=== PATIENT | female | born 1975 | race African-American/Black ===

== ENCOUNTER 2017-02-16 00:55 | Emergency (ER) | payer MEDICAID, OTHER ==
[~2017-02-16] VITALS: Ht 160 cm; Wt 61.0 kg
[~2017-02-16 00:55] MED LIST: ALBUTEROL
[2017-02-16] MEDS ORDERED: ONDANSETRON HCL 4MG/2ML VIAL IV STA (02:19)
[2017-02-16] MEDS ORDERED: MORPHINE SULFATE 4 MG/ML CPJ (NOT FOR IM USE) IV STA (02:19)
[2017-02-16] MEDS ORDERED: SODIUM CHLORIDE 0.9% 1,000 ML IV ONE (02:19)
[2017-02-16] MEDS ORDERED: MORPHINE SULFATE 10 MG/ML CPJ IV STA (02:30)
[2017-02-16] MEDS ORDERED: ONDANSETRON HCL 4MG/2ML VIAL IV ONE (02:45)
[2017-02-16] MEDS ORDERED: MORPHINE SULFATE 10 MG/ML CPJ IV SCH (02:45)
[2017-02-16 02:47] LABS: BASOPHILS % 1.1 % (0.0-2.0); EOSINOPHILS % 1.2 % (0.0-5.0); HEMATOCRIT. 37.4 % (36.0-48.0); HEMOGLOBIN. 12.1 g/dL (12.0-16.0); MEAN CORPUSCULAR HEMOGLOBIN 28.8 pg (28.0-32.0); MEAN CORPUSCULAR VOLUME 89.3 fL (81.0-99.0); MEAN PLATELET VOLUME 9.8 fl (7.4-10.4); MONOCYTES % 3.4 % (2.0-8.0); NEUTROPHILS % 44.3 % (40.0-76.0); PLATELET 144 x1000/uL (130-400); RED BLOOD CELL COUNT 4.18 mill/uL (4.2-5.4); RED CELL DISTRIBUTION WIDTH 13.4 % (11.6-14.6)
[2017-02-16 02:57] LABS: PROTHROMBIN TIME 10.3 sec (9.4-11.6)
[2017-02-16 03:20] LABS: CARBON DIOXIDE 27 mEq/L (21-32); CHLORIDE 105 mEq/L (98-107)
[2017-02-16 03:32] LABS: ETHANOL BLOOD 319 mg/dL
[2017-02-16 07:35] VITALS: BP 113/87
== END 2017-02-16 08:12 | disposition home or self-care (01) ==
LOC: ER 00:55
DX: J45.909 Unspecified asthma, uncomplicated (principal); R10.9 Unspecified abdominal pain; R04.0 Epistaxis; I10 Essential (primary) hypertension; M19.90 Unspecified osteoarthritis, unspecified site
CPT/HCPCS: 36415; 71010; 80053; 83605; 83690; 85025; 85610; 87040; 96361; 96374; 96375; 99285; G0482; J2270; J2405; Z7610; J7030

== ENCOUNTER 2017-07-12 10:17 | Inpatient (IN) | payer MEDICAID ==
[~2017-07-12] VITALS: Ht 160 cm; Wt 63.5 kg
[2017-07-12] MEDS ORDERED: ONDANSETRON HCL 4MG/2ML VIAL IV STA (11:08)
[2017-07-12] MEDS ORDERED: SODIUM CHLORIDE 0.9% 1,000 ML IV ONE (11:08)
[2017-07-12] MEDS ORDERED: METHYLPREDNISOLONE SOD SUCC 125 MG/2 ML VIAL IV ONE (11:15)
[2017-07-12] MEDS ORDERED: KETOROLAC 30MG/ML VIAL IV ONE (11:15)
[2017-07-12] MEDS ORDERED: IPRATROPIUM/ALBUTEROL 0.5-3(2.5)MG/3ML NEB HHN ONE (11:15)
[2017-07-12 11:36] LABS: HEMATOCRIT. 40.9 % (36.0-48.0); HEMOGLOBIN. 13.5 g/dL (12.0-16.0); MEAN CORPUSCULAR HEMOGLOBIN 29.4 pg (28.0-32.0); MEAN PLATELET VOLUME 10.7 fl (7.4-10.4); PLATELET 63 x1000/uL (130-400); RED BLOOD CELL COUNT 4.59 mill/uL (4.2-5.4); RED CELL DISTRIBUTION WIDTH 16.9 % (11.6-14.6)
[2017-07-12 11:43] LABS: CHLORIDE 92 mEq/L (98-107)
[2017-07-12 11:53] LABS: PARTIAL THROMBOPLASTIN TIME 38.1 sec (23.4-31.0); PROTHROMBIN TIME 10.5 sec (9.4-11.6)
[2017-07-12 12:02] LABS: PLATELET ESTIMATE DECREASED
[2017-07-12] MEDS ORDERED: POTASSIUM CHLORIDE 20MEQ TABLET SR PO ONE (12:30)
[2017-07-12] MEDS ORDERED: KCL 10MEQ/50ML PREMIX 50 ML IV ONE (12:30)
[2017-07-12] MEDS ORDERED: CEFTRIAXONE 1 G PREMIX 50 ML IV ONE (13:00)
[2017-07-12] MEDS ORDERED: AZITHROMYCIN 500 MG in DEXT 5% WATER 250 ML IV SCH (13:00)
[2017-07-12 14:57] LABS: ETHANOL BLOOD 50 mg/dL
[2017-07-12 16:30] VITALS: BP 126/89
[2017-07-12] MEDS ORDERED: CLONIDINE 0.1MG TABLET PO PRN (17:15)
[2017-07-12] MEDS ORDERED: MAGNESIUM/ALUMINUM HYDROXIDE/SIMETHICONE 30ML UDC PO PRN (17:15)
[2017-07-12] MEDS ORDERED: ZOLPIDEM TARTRATE 5MG TABLET PO PRN (17:15)
[2017-07-12] MEDS ORDERED: SODIUM CHLORIDE 0.9% 1,000 ML IV SCH (17:30)
[2017-07-12] MEDS ORDERED: POTASSIUM CHLORIDE INJ 40 MEQ in DEXT 5% WATER 500 ML IV ONE (19:00)
[2017-07-12 20:00] VITALS: BP 124/90
[2017-07-12] MEDS: LEVOFLOXACIN 500MG PREMIX 100 ML IV SCH (20:00)
[2017-07-12] MEDS ORDERED: MAGNESIUM 2 G PREMIX 50 ML IV NR (21:00)
[2017-07-12] MEDS: IPRATROPIUM/ALBUTEROL 0.5-3(2.5)MG/3ML NEB HHN SCH (21:15)
[2017-07-12] MEDS: ACETAMINOPHEN 325MG TABLET PO PRN (22:59)
[2017-07-13] VITALS: BP 131/83
[2017-07-13] MEDS: IPRATROPIUM/ALBUTEROL 0.5-3(2.5)MG/3ML NEB HHN SCH ×6 (01:11→21:04)
[2017-07-13 04:00] VITALS: BP 126/84
[2017-07-13 06:17] LABS: BASOPHILS % 0.1 % (0.0-2.0); EOSINOPHILS % 0.6 % (0.0-5.0); HEMATOCRIT. 35.5 % (36.0-48.0); HEMOGLOBIN. 11.8 g/dL (12.0-16.0); LYMPHOCYTES % 7.2 % (20.0-50.0); MEAN CORPUSCULAR HEMOGLOBIN 29.4 pg (28.0-32.0); MEAN CORPUSCULAR VOLUME 88.9 fL (81.0-99.0); MEAN PLATELET VOLUME 11.7 fl (7.4-10.4); NEUTROPHILS % 84.1 % (40.0-76.0); PLATELET 53 x1000/uL (130-400); RED BLOOD CELL COUNT 3.99 mill/uL (4.2-5.4)
[2017-07-13] MEDS: PIPERACILLIN/TAZ 3.375G PREMIX 50 ML IV SCH ×2 (06:30)
[2017-07-13] MEDS: LEVOFLOXACIN 500MG PREMIX 100 ML IV SCH (06:58)
[2017-07-13 07:14] LABS: CHLORIDE 96 mEq/L (98-107)
[2017-07-13 07:29] LABS: PHOSPHORUS 1.8 mg/dL (2.5-4.9)
[2017-07-13 07:56] VITALS: BP 112/78
[2017-07-13] MEDS: PANTOPRAZOLE SODIUM 40 MG/VIAL IV SCH (08:38)
[2017-07-13] MEDS ORDERED: MAGNESIUM 1 G PREMIX 100 ML IV NR (10:30)
[2017-07-13] MEDS ORDERED: GENTAMICIN SULFATE 120 MG in SODIUM CHLORIDE 0.9% 100 ML IV SCH (11:00)
[2017-07-13] MEDS ORDERED: POTASSIUM PHOS,M-BASIC-D-BASIC 20 MMOL in DEXT 5% WATER 243.3333 ML IV NR (11:00)
[2017-07-13 12:08] VITALS: BP 110/61
[2017-07-13] MEDS ORDERED: NICOTINE 21MG PATCH TD NR (15:30)
[2017-07-13] MEDS: ACETAMINOPHEN 325MG TABLET PO PRN (15:45)
[2017-07-13] MEDS: KETOROLAC 30MG/ML VIAL IV PRN (16:04)
[2017-07-13] MEDS: BUDESONIDE 0.5MG/2ML NEB HHN SCH (16:19)
[2017-07-13 16:26] VITALS: BP 115/77
[2017-07-13 17:09] LABS: CLARITY URINE CLEAR (CLEAR); COLOR URINE YELLOW (YELLOW); KETONES URINE NEGATIVE (NEGATIVE); LEUKOCYTE ESTERASE URINE NEGATIVE (NEGATIVE); NITRITE URINE NEGATIVE (NEGATIVE); OCCULT BLOOD URINE 1+ (NEGATIVE); PROTEIN URINE 1+ (NEGATIVE); SPECIFIC GRAVITY URINE 1.013 (1.005-1.030); UROBILINOGEN URINE 0.2 E.U./dL (0.2-1.0)
[2017-07-13 17:21] LABS: *AMPHETAMINES SCREEN URINE NEGATIVE (NEGATIVE); *BARBITURATES SCREEN URINE NEGATIVE (NEGATIVE); *BENZODIAZEPINES SCREEN URINE NEGATIVE (NEGATIVE); *COCAINE SCREEN URINE NEGATIVE (NEGATIVE)
[2017-07-13 17:22] LABS: METHADONE URINE SCREEN NEGATIVE (NEGATIVE); OPIATES URINE SCREEN NEGATIVE (NEGATIVE); PHENCYCLIDINE URINE SCREEN NEGATIVE (NEGATIVE)
[2017-07-13 17:25] LABS: CANNABINOID URINE SCREEN NEGATIVE (NEGATIVE)
[2017-07-13] MEDS: SODIUM CHL 0.9% + KCL 20MEQ/L 1,000 ML IV SCH (17:48)
[2017-07-13 20:00] VITALS: BP 98/67
[2017-07-13] MEDS: GUAIFENESIN 600MG ER TABLET PO SCH (20:47)
[2017-07-13] MEDS ORDERED: GENTAMICIN 100MG PREMIX 50 ML IV SCH (21:00)
[2017-07-13] MEDS: GENTAMICIN SULFATE 120 MG in SODIUM CHLORIDE 0.9% 100 ML IV SCH (21:21)
[2017-07-14] VITALS: BP 126/85
[2017-07-14] MEDS: ONDANSETRON HCL 4MG/2ML VIAL IV PRN (00:52)
[2017-07-14] MEDS: KETOROLAC 30MG/ML VIAL IV PRN ×3 (00:52→14:45)
[2017-07-14 04:00] VITALS: BP 106/70
[2017-07-14] MEDS: BUDESONIDE 0.5MG/2ML NEB HHN SCH ×3 (04:50→20:30)
[2017-07-14] MEDS: IPRATROPIUM/ALBUTEROL 0.5-3(2.5)MG/3ML NEB HHN SCH ×6 (04:50→20:30)
[2017-07-14 05:43] LABS: HEMATOCRIT. 32.7 % (36.0-48.0); HEMOGLOBIN. 10.8 g/dL (12.0-16.0); MEAN CORPUSCULAR HEMOGLOBIN 29.4 pg (28.0-32.0); MEAN PLATELET VOLUME 11.3 fl (7.4-10.4); PLATELET 63 x1000/uL (130-400); RED BLOOD CELL COUNT 3.68 mill/uL (4.2-5.4); RED CELL DISTRIBUTION WIDTH 17.1 % (11.6-14.6)
[2017-07-14] MEDS: LEVOFLOXACIN 500MG PREMIX 100 ML IV SCH (06:04)
[2017-07-14] MEDS: SODIUM CHL 0.9% + KCL 20MEQ/L 1,000 ML IV SCH ×3 (06:05→23:29)
[2017-07-14 08:00] VITALS: BP 121/68
[2017-07-14 08:05] LABS: CHLORIDE 101 mEq/L (98-107)
[2017-07-14 08:25] LABS: PHOSPHORUS 1.7 mg/dL (2.5-4.9)
[2017-07-14] MEDS: PANTOPRAZOLE SODIUM 40 MG/VIAL IV SCH (08:25)
[2017-07-14] MEDS: ACETAMINOPHEN 325MG TABLET PO PRN (08:25)
[2017-07-14] MEDS: GUAIFENESIN 600MG ER TABLET PO SCH ×2 (08:26→21:07)
[2017-07-14 08:28] LABS: GENTAMICIN TROUGH 1.2 ug/mL (<2.0)
[2017-07-14] MEDS: NICOTINE 21MG PATCH TD SCH (10:33)
[2017-07-14] MEDS: GENTAMICIN SULFATE 120 MG in SODIUM CHLORIDE 0.9% 100 ML IV SCH ×2 (11:38→21:07)
[2017-07-14 12:00] VITALS: BP 103/74
[2017-07-14 14:23] LABS: PLATELET ESTIMATE DECREASED
[2017-07-14] MEDS ORDERED: HYDROCODONE/ACETAMINOPHEN 5/325MG TABLET PO PRN (15:00)
[2017-07-14 16:00] VITALS: BP 113/86
[2017-07-14] MEDS ORDERED: POTASSIUM PHOS,M-BASIC-D-BASIC 30 MMOL in DEXT 5% WATER 500 ML IV NR (17:00)
[2017-07-14] MEDS: MORPHINE SULFATE 4 MG/ML CPJ (NOT FOR IM USE) IV PRN (18:58)
[2017-07-14 20:00] VITALS: BP 112/84
[2017-07-14] MEDS: HYDROCODONE/ACETAMINOPHEN 10/325MG TABLET PO PRN (21:13)
[2017-07-15] VITALS: BP 122/68
[2017-07-15] MEDS: ACETYLCYSTEINE 100MG/ML 10% VIAL 4ML INH SCH ×4 (00:40→16:29)
[2017-07-15 04:00] VITALS: BP 116/79
[2017-07-15] MEDS: IPRATROPIUM/ALBUTEROL 0.5-3(2.5)MG/3ML NEB HHN SCH ×7 (04:45→20:36)
[2017-07-15] MEDS: SODIUM CHL 0.9% + KCL 20MEQ/L 1,000 ML IV SCH ×3 (06:26→23:21)
[2017-07-15] MEDS: LEVOFLOXACIN 500MG PREMIX 100 ML IV SCH (06:27)
[2017-07-15 06:46] LABS: CHLORIDE 105 mEq/L (98-107)
[2017-07-15 07:08] LABS: HEMATOCRIT. 34.2 % (36.0-48.0); HEMOGLOBIN. 11.4 g/dL (12.0-16.0); MEAN CORPUSCULAR HEMOGLOBIN 29.1 pg (28.0-32.0); MEAN CORPUSCULAR VOLUME 87.7 fL (81.0-99.0); MEAN PLATELET VOLUME 10.9 fl (7.4-10.4); PLATELET 114 x1000/uL (130-400); RED CELL DISTRIBUTION WIDTH 17.4 % (11.6-14.6)
[2017-07-15 08:00] VITALS: BP 141/95
[2017-07-15] MEDS ORDERED: LIDOCAINE HCL/PF 1% 10 MG/ML 5ML VIAL ONE (08:08)
[2017-07-15] MEDS ORDERED: SODIUM BICARBONATE 4% (2.4MEQ) 5ML VIAL IV ONE (08:08)
[2017-07-15] MEDS: NICOTINE 21MG PATCH TD SCH (09:00)
[2017-07-15] MEDS: BUDESONIDE 0.5MG/2ML NEB HHN SCH ×2 (09:12→20:37)
[2017-07-15] MEDS: PANTOPRAZOLE SODIUM 40 MG/VIAL IV SCH (09:52)
[2017-07-15] MEDS: GUAIFENESIN 600MG ER TABLET PO SCH ×2 (09:53→23:20)
[2017-07-15] MEDS: MORPHINE SULFATE 4 MG/ML CPJ (NOT FOR IM USE) IV PRN (09:58)
[2017-07-15 12:00] VITALS: BP 138/95
[2017-07-15] MEDS ORDERED: MAGNESIUM 2 G PREMIX 50 ML IV NR (12:00)
[2017-07-15] MEDS ORDERED: POTASSIUM PHOS,M-BASIC-D-BASIC 30 MMOL in DEXT 5% WATER 500 ML IV NR (12:00)
[2017-07-15 16:00] VITALS: BP 116/75
[2017-07-15] MEDS: HYDROCODONE/ACETAMINOPHEN 10/325MG TABLET PO PRN (16:33)
[2017-07-15 19:49] LABS: PLATELET ESTIMATE SLIGHTLY DECREASED
[2017-07-15 20:00] VITALS: BP 132/80
[2017-07-16] VITALS: BP 116/73
[2017-07-16] MEDS: IPRATROPIUM/ALBUTEROL 0.5-3(2.5)MG/3ML NEB HHN SCH ×5 (01:22→21:34)
[2017-07-16] MEDS: ACETYLCYSTEINE 100MG/ML 10% VIAL 4ML INH SCH ×3 (01:23→17:00)
[2017-07-16] MEDS: LEVOFLOXACIN 500MG PREMIX 100 ML IV SCH (06:31)
[2017-07-16] MEDS: SODIUM CHL 0.9% + KCL 20MEQ/L 1,000 ML IV SCH (06:31)
[2017-07-16 07:55] LABS: HEMATOCRIT. 30.6 % (36.0-48.0); HEMOGLOBIN. 10.4 g/dL (12.0-16.0); MEAN CORPUSCULAR HEMOGLOBIN 29.9 pg (28.0-32.0); MEAN CORPUSCULAR VOLUME 87.8 fL (81.0-99.0); MEAN PLATELET VOLUME 10.5 fl (7.4-10.4); PLATELET 185 x1000/uL (130-400); RED BLOOD CELL COUNT 3.49 mill/uL (4.2-5.4); RED CELL DISTRIBUTION WIDTH 17.3 % (11.6-14.6)
[2017-07-16 08:00] VITALS: BP 107/68
[2017-07-16] MEDS: BUDESONIDE 0.5MG/2ML NEB HHN SCH (08:20)
[2017-07-16 08:39] LABS: CHLORIDE 100 mEq/L (98-107)
[2017-07-16 08:46] LABS: PHOSPHORUS 1.2 mg/dL (2.5-4.9)
[2017-07-16] MEDS: PANTOPRAZOLE SODIUM 40 MG/VIAL IV SCH (09:05)
[2017-07-16] MEDS: GUAIFENESIN 600MG ER TABLET PO SCH ×2 (09:05→20:11)
[2017-07-16] MEDS: NICOTINE 21MG PATCH TD SCH (09:05)
[2017-07-16] MEDS: HYDROCODONE/ACETAMINOPHEN 10/325MG TABLET PO PRN ×2 (09:18→18:27)
[2017-07-16] MEDS ORDERED: MAGNESIUM 4 G PREMIX 100 ML IV NR (10:00)
[2017-07-16] MEDS ORDERED: SODIUM BICARBONATE 4% (2.4MEQ) 5ML VIAL IV ONE (10:54)
[2017-07-16] MEDS ORDERED: POTASSIUM PHOS,M-BASIC-D-BASIC 30 MMOL in DEXT 5% WATER 500 ML IV NR (11:00)
[2017-07-16 12:00] VITALS: BP 93/64
[2017-07-16 16:00] VITALS: BP 112/72
[2017-07-16 16:19] LABS: PLATELET ESTIMATE NORMAL
[2017-07-16 18:25] VITALS: BP 123/72
[2017-07-16 20:00] VITALS: BP 102/69
[2017-07-16] MEDS: ACETAMINOPHEN 325MG TABLET PO PRN (20:20)
[2017-07-17] VITALS: BP 98/62
[2017-07-17] MEDS: IPRATROPIUM/ALBUTEROL 0.5-3(2.5)MG/3ML NEB HHN SCH ×6 (01:15→21:10)
[2017-07-17] MEDS: ACETYLCYSTEINE 100MG/ML 10% VIAL 4ML INH SCH ×2 (01:15→21:10)
[2017-07-17] MEDS: HYDROCODONE/ACETAMINOPHEN 10/325MG TABLET PO PRN ×3 (03:49→22:22)
[2017-07-17] MEDS: GUAIFENESIN 200MG/10ML SUGAR FREE UDC PO PRN ×2 (03:58→15:28)
[2017-07-17 04:00] VITALS: BP 119/81
[2017-07-17] MEDS: SODIUM CHL 0.9% + KCL 20MEQ/L 1,000 ML IV SCH ×2 (05:54→07:30)
[2017-07-17] MEDS: LEVOFLOXACIN 500MG PREMIX 100 ML IV SCH (07:40)
[2017-07-17] MEDS: GUAIFENESIN 600MG ER TABLET PO SCH ×2 (08:07→22:10)
[2017-07-17] MEDS: FAMOTIDINE 20MG TABLET PO SCH ×2 (08:07→22:10)
[2017-07-17] MEDS: NICOTINE 21MG PATCH TD SCH (08:08)
[2017-07-17 08:27] VITALS: BP 105/62
[2017-07-17 09:27] LABS: CHLORIDE 99 mEq/L (98-107)
[2017-07-17 09:40] LABS: PHOSPHORUS 3.5 mg/dL (2.5-4.9)
[2017-07-17 12:00] VITALS: BP 118/76
[2017-07-17] MEDS: ACETAMINOPHEN 325MG TABLET PO PRN (12:10)
[2017-07-17 15:38] VITALS: BP 128/91
[2017-07-17] MEDS: BENZONATATE 100MG CAPSULE PO SCH ×2 (16:57→22:10)
[2017-07-17 17:05] LABS: BG CARBOXYHEMOGLOBIN 1.1 % (0.5-1.5); BG FRACTION INSPIRED OXYGEN 21; BG HCO3 ACT 22.8 mmol/L (22.0-26.0); BG METHEMOGLOBIN 0.2 % (0.0-1.5); BG OXYHEMOGLOBIN 92.7 % (94.0-97.0); BG PCO2 31.5 mmHg (35.0-45.0); BG PH 7.478 (7.350-7.450); BG PO2 67.9 mmHg (75.0-100.0); BG SAMPLE SITE RIGHT RADIAL; BG TOTAL HEMOGLOBIN 11.8 g/dL (12.0-18.0); BG VENT MODE ROOM AIR
[2017-07-17 20:00] VITALS: BP 101/69
[2017-07-17] MEDS ORDERED: GUAIFENESIN 600MG ER TABLET PO SCH (21:00)
[2017-07-17] MEDS: BUDESONIDE 0.5MG/2ML NEB HHN SCH (21:10)
[2017-07-18] VITALS: BP 98/56
[2017-07-18 04:00] VITALS: BP 135/76
[2017-07-18] MEDS: GUAIFENESIN 200MG/10ML SUGAR FREE UDC PO PRN ×2 (04:39→21:34)
[2017-07-18] MEDS: BENZONATATE 100MG CAPSULE PO SCH ×3 (05:20→21:34)
[2017-07-18] MEDS: LEVOFLOXACIN 500MG PREMIX 100 ML IV SCH (06:59)
[2017-07-18 08:00] VITALS: BP 117/76
[2017-07-18] MEDS: NICOTINE 21MG PATCH TD SCH (08:08)
[2017-07-18] MEDS: FAMOTIDINE 20MG TABLET PO SCH ×2 (08:09→21:34)
[2017-07-18] MEDS: GUAIFENESIN 600MG ER TABLET PO SCH ×2 (08:09→21:34)
[2017-07-18] MEDS: ACETAMINOPHEN 325MG TABLET PO PRN (08:09)
[2017-07-18] MEDS: IPRATROPIUM/ALBUTEROL 0.5-3(2.5)MG/3ML NEB HHN SCH ×4 (08:45→21:01)
[2017-07-18] MEDS: ACETYLCYSTEINE 100MG/ML 10% VIAL 4ML INH SCH ×2 (08:45→16:53)
[2017-07-18 12:00] VITALS: BP 104/59
[2017-07-18 13:49] LABS: KETONES URINE TRACE (NEGATIVE); LEUKOCYTE ESTERASE URINE TRACE (NEGATIVE); NITRITE URINE NEGATIVE (NEGATIVE); OCCULT BLOOD URINE NEGATIVE (NEGATIVE); PROTEIN URINE TRACE (NEGATIVE); SPECIFIC GRAVITY URINE 1.019 (1.005-1.030)
[2017-07-18 13:51] LABS: CLARITY URINE HAZY (CLEAR); COLOR URINE YELLOW (YELLOW)
[2017-07-18 14:31] LABS: BASOPHILS % 0.4 % (0.0-2.0); EOSINOPHILS % 0.2 % (0.0-5.0); HEMATOCRIT. 27.4 % (36.0-48.0); HEMOGLOBIN. 9.3 g/dL (12.0-16.0); LYMPHOCYTES % 16.1 % (20.0-50.0); MEAN CORPUSCULAR HEMOGLOBIN 29.7 pg (28.0-32.0); MEAN CORPUSCULAR VOLUME 87.9 fL (81.0-99.0); MEAN PLATELET VOLUME 9.7 fl (7.4-10.4); MONOCYTES % 9.3 % (2.0-8.0); PLATELET 297 x1000/uL (130-400); RED BLOOD CELL COUNT 3.12 mill/uL (4.2-5.4); RED CELL DISTRIBUTION WIDTH 16.2 % (11.6-14.6)
[2017-07-18] MEDS: PIPERACILLIN/TAZ 3.375G PREMIX 50 ML IV SCH ×2 (14:49→21:34)
[2017-07-18] MEDS: HYDROCODONE/ACETAMINOPHEN 10/325MG TABLET PO PRN ×2 (14:52→21:43)
[2017-07-18] MEDS: PANTOPRAZOLE SODIUM 40 MG/VIAL IV SCH (15:00)
[2017-07-18 16:00] VITALS: BP 127/76
[2017-07-18] MEDS: BUDESONIDE 0.5MG/2ML NEB HHN SCH (16:53)
[2017-07-18 20:00] VITALS: BP 129/84
[2017-07-19] VITALS: BP 98/53
[2017-07-19] MEDS: ACETYLCYSTEINE 100MG/ML 10% VIAL 4ML INH SCH ×3 (00:36→15:11)
[2017-07-19] MEDS: IPRATROPIUM/ALBUTEROL 0.5-3(2.5)MG/3ML NEB HHN SCH ×6 (00:37→22:14)
[2017-07-19 04:00] VITALS: BP 117/65
[2017-07-19] MEDS: BENZONATATE 100MG CAPSULE PO SCH ×3 (05:30→22:41)
[2017-07-19] MEDS: ACETAMINOPHEN 325MG TABLET PO PRN ×2 (05:30→17:51)
[2017-07-19] MEDS: PIPERACILLIN/TAZ 3.375G PREMIX 50 ML IV SCH ×2 (05:30→13:48)
[2017-07-19] MEDS: GUAIFENESIN 200MG/10ML SUGAR FREE UDC PO PRN ×2 (05:33→17:30)
[2017-07-19] MEDS: BUDESONIDE 0.5MG/2ML NEB HHN SCH (07:54)
[2017-07-19] MEDS: FAMOTIDINE 20MG TABLET PO SCH ×2 (08:40→22:40)
[2017-07-19] MEDS: GUAIFENESIN 600MG ER TABLET PO SCH ×2 (08:40→22:40)
[2017-07-19] MEDS: PANTOPRAZOLE SODIUM 40 MG/VIAL IV SCH (08:40)
[2017-07-19] MEDS: NICOTINE 21MG PATCH TD SCH (08:48)
[2017-07-19] MEDS: HYDROCODONE/ACETAMINOPHEN 10/325MG TABLET PO PRN (09:39)
[2017-07-19 11:59] LABS: BASOPHILS % 0.4 % (0.0-2.0); EOSINOPHILS % 0.1 % (0.0-5.0); HEMATOCRIT. 25.5 % (36.0-48.0); HEMOGLOBIN. 8.6 g/dL (12.0-16.0); LYMPHOCYTES % 9.9 % (20.0-50.0); MEAN CORPUSCULAR HEMOGLOBIN 29.4 pg (28.0-32.0); MEAN CORPUSCULAR VOLUME 87.6 fL (81.0-99.0); MEAN PLATELET VOLUME 9.9 fl (7.4-10.4); MONOCYTES % 6.1 % (2.0-8.0); NEUTROPHILS % 83.5 % (40.0-76.0); PLATELET 310 x1000/uL (130-400); RED BLOOD CELL COUNT 2.92 mill/uL (4.2-5.4)
[2017-07-19 12:33] LABS: CHLORIDE 97 mEq/L (98-107)
[2017-07-19] MEDS ORDERED: VANCOMYCIN 1250MG in DEXTROSE 5% WATER 250ML IV NR (18:00)
[2017-07-19 20:00] VITALS: BP 129/38
[2017-07-19 22:00] VITALS: BP 114/77
[2017-07-20] VITALS (8 sets, daily range): BP systolic 108–134; BP diastolic 65–97
[2017-07-20] MEDS: PIPERACILLIN/TAZ 3.375G PREMIX 50 ML IV SCH ×4 (00:25→21:25)
[2017-07-20] MEDS: ACETYLCYSTEINE 100MG/ML 10% VIAL 4ML INH SCH (00:39)
[2017-07-20] MEDS: IPRATROPIUM/ALBUTEROL 0.5-3(2.5)MG/3ML NEB HHN SCH ×6 (00:39→21:04)
[2017-07-20] MEDS: VANCOMYCIN 750 MG PREMIX 150 ML IV SCH ×3 (03:03→17:30)
[2017-07-20] MEDS: BENZONATATE 100MG CAPSULE PO SCH ×3 (05:07→21:25)
[2017-07-20] MEDS: GUAIFENESIN 600MG ER TABLET PO SCH ×2 (08:32→21:25)
[2017-07-20] MEDS: PANTOPRAZOLE SODIUM 40 MG/VIAL IV SCH (08:32)
[2017-07-20] MEDS: FAMOTIDINE 20MG TABLET PO SCH ×2 (08:32→21:25)
[2017-07-20] MEDS: GUAIFENESIN 200MG/10ML SUGAR FREE UDC PO PRN ×3 (08:32→19:39)
[2017-07-20] MEDS: NICOTINE 21MG PATCH TD SCH (08:56)
[2017-07-20] MEDS: BUDESONIDE 0.5MG/2ML NEB HHN SCH (09:10)
[2017-07-20] MEDS: ACETAMINOPHEN 325MG TABLET PO PRN (19:38)
[2017-07-21] VITALS (9 sets, daily range): BP systolic 113–132; BP diastolic 57–89
[2017-07-21] MEDS: IPRATROPIUM/ALBUTEROL 0.5-3(2.5)MG/3ML NEB HHN SCH ×6 (00:06→20:15)
[2017-07-21] MEDS: VANCOMYCIN 750 MG PREMIX 150 ML IV SCH ×3 (01:05→17:35)
[2017-07-21] MEDS: GUAIFENESIN 200MG/10ML SUGAR FREE UDC PO PRN ×5 (02:34→21:41)
[2017-07-21] MEDS: PIPERACILLIN/TAZ 3.375G PREMIX 50 ML IV SCH ×3 (05:08→21:28)
[2017-07-21] MEDS: BENZONATATE 100MG CAPSULE PO SCH ×3 (05:08→21:15)
[2017-07-21] MEDS: FAMOTIDINE 20MG TABLET PO SCH ×2 (08:05→20:51)
[2017-07-21] MEDS: GUAIFENESIN 600MG ER TABLET PO SCH ×2 (08:05→20:51)
[2017-07-21] MEDS: PANTOPRAZOLE SODIUM 40 MG/VIAL IV SCH (08:05)
[2017-07-21] MEDS: NICOTINE 21MG PATCH TD SCH (08:06)
[2017-07-21] MEDS: ACETAMINOPHEN 325MG TABLET PO PRN ×3 (10:15→21:29)
[2017-07-21 10:33] LABS: HEMATOCRIT. 25.8 % (36.0-48.0); HEMOGLOBIN. 8.5 g/dL (12.0-16.0); MEAN CORPUSCULAR HEMOGLOBIN 29.2 pg (28.0-32.0); MEAN CORPUSCULAR VOLUME 88.7 fL (81.0-99.0); MEAN PLATELET VOLUME 9.8 fl (7.4-10.4); PLATELET 425 x1000/uL (130-400); RED BLOOD CELL COUNT 2.91 mill/uL (4.2-5.4); RED CELL DISTRIBUTION WIDTH 15.8 % (11.6-14.6)
[2017-07-21 18:49] LABS: TOTAL IRON BINDING CAPACITY 292 ug/dL (250-450)
[2017-07-21 21:29] LABS: PLATELET ESTIMATE NORMAL
[2017-07-22] VITALS (13 sets, daily range): BP systolic 105–137; BP diastolic 45–85
[2017-07-22] MEDS: ACETAMINOPHEN 325MG TABLET PO PRN ×2 (01:35→16:58)
[2017-07-22] MEDS: GUAIFENESIN 200MG/10ML SUGAR FREE UDC PO PRN ×4 (01:35→20:49)
[2017-07-22] MEDS: BENZONATATE 100MG CAPSULE PO SCH ×4 (01:36→20:50)
[2017-07-22] MEDS: VANCOMYCIN 750 MG PREMIX 150 ML IV SCH ×3 (01:45→18:15)
[2017-07-22] MEDS: IPRATROPIUM/ALBUTEROL 0.5-3(2.5)MG/3ML NEB HHN SCH ×5 (04:20→21:35)
[2017-07-22] MEDS: PIPERACILLIN/TAZ 3.375G PREMIX 50 ML IV SCH ×3 (05:32→20:53)
[2017-07-22 06:08] LABS: HEMATOCRIT. 25.9 % (36.0-48.0); HEMOGLOBIN. 8.5 g/dL (12.0-16.0); MEAN CORPUSCULAR HEMOGLOBIN 29.3 pg (28.0-32.0); MEAN CORPUSCULAR VOLUME 89.5 fL (81.0-99.0); MEAN PLATELET VOLUME 9.7 fl (7.4-10.4); PLATELET 477 x1000/uL (130-400); RED BLOOD CELL COUNT 2.89 mill/uL (4.2-5.4); RED CELL DISTRIBUTION WIDTH 15.8 % (11.6-14.6)
[2017-07-22] MEDS ORDERED: HYDROCODONE/ACETAMINOPHEN 5/325MG TABLET PO PRN (07:45)
[2017-07-22] MEDS: FAMOTIDINE 20MG TABLET PO SCH ×2 (08:23→20:49)
[2017-07-22] MEDS: GUAIFENESIN 600MG ER TABLET PO SCH ×2 (08:23→20:49)
[2017-07-22] MEDS: NICOTINE 21MG PATCH TD SCH (08:24)
[2017-07-22 13:25] LABS: PLATELET ESTIMATE INCREASED
[2017-07-22] MEDS: HYDROCODONE/ACETAMINOPHEN 10/325MG TABLET PO PRN ×2 (15:15→22:05)
[2017-07-23] VITALS (12 sets, daily range): BP systolic 102–140; BP diastolic 58–74
[2017-07-23] MEDS: IPRATROPIUM/ALBUTEROL 0.5-3(2.5)MG/3ML NEB HHN SCH ×6 (01:52→20:08)
[2017-07-23] MEDS: VANCOMYCIN 750 MG PREMIX 150 ML IV SCH (02:42)
[2017-07-23] MEDS: GUAIFENESIN 200MG/10ML SUGAR FREE UDC PO PRN ×4 (02:42→20:16)
[2017-07-23] MEDS: BENZONATATE 100MG CAPSULE PO SCH ×3 (06:22→21:22)
[2017-07-23] MEDS: PIPERACILLIN/TAZ 3.375G PREMIX 50 ML IV SCH ×3 (06:22→21:22)
[2017-07-23] MEDS: HYDROCODONE/ACETAMINOPHEN 10/325MG TABLET PO PRN ×3 (06:28→21:25)
[2017-07-23 07:09] LABS: BASOPHILS % 0.8 % (0.0-2.0); EOSINOPHILS % 0.3 % (0.0-5.0); HEMATOCRIT. 23.5 % (36.0-48.0); HEMOGLOBIN. 7.9 g/dL (12.0-16.0); LYMPHOCYTES % 7.8 % (20.0-50.0); MEAN CORPUSCULAR HEMOGLOBIN 29.8 pg (28.0-32.0); MEAN CORPUSCULAR VOLUME 89.1 fL (81.0-99.0); MEAN PLATELET VOLUME 9.4 fl (7.4-10.4); MONOCYTES % 6.3 % (2.0-8.0); NEUTROPHILS % 84.8 % (40.0-76.0); PLATELET 539 x1000/uL (130-400); RED BLOOD CELL COUNT 2.64 mill/uL (4.2-5.4); RED CELL DISTRIBUTION WIDTH 16.2 % (11.6-14.6)
[2017-07-23] MEDS: GUAIFENESIN 600MG ER TABLET PO SCH (08:51)
[2017-07-23] MEDS: NICOTINE 21MG PATCH TD SCH (08:51)
[2017-07-23] MEDS: FAMOTIDINE 20MG TABLET PO SCH ×2 (08:51→21:22)
[2017-07-23] MEDS: ACETAMINOPHEN 325MG TABLET PO PRN (17:01)
[2017-07-24] VITALS: BP 117/73
[2017-07-24] MEDS: IPRATROPIUM/ALBUTEROL 0.5-3(2.5)MG/3ML NEB HHN SCH ×6 (01:02→20:34)
[2017-07-24] MEDS: GUAIFENESIN 200MG/10ML SUGAR FREE UDC PO PRN ×3 (03:49→19:04)
[2017-07-24] MEDS: ACETAMINOPHEN 325MG TABLET PO PRN ×2 (03:50→12:50)
[2017-07-24 04:00] VITALS: BP 122/75
[2017-07-24] MEDS: BENZONATATE 100MG CAPSULE PO SCH ×3 (05:52→21:01)
[2017-07-24] MEDS: PIPERACILLIN/TAZ 3.375G PREMIX 50 ML IV SCH ×3 (05:53→21:01)
[2017-07-24] MEDS: HYDROCODONE/ACETAMINOPHEN 10/325MG TABLET PO PRN ×3 (05:54→21:53)
[2017-07-24 08:00] VITALS: BP 108/68
[2017-07-24] MEDS: FAMOTIDINE 20MG TABLET PO SCH ×2 (08:23→21:01)
[2017-07-24] MEDS: NICOTINE 21MG PATCH TD SCH (08:26)
[2017-07-24 09:05] LABS: BASOPHILS % 1.2 % (0.0-2.0); EOSINOPHILS % 0.4 % (0.0-5.0); LYMPHOCYTES % 9.1 % (20.0-50.0); MEAN CORPUSCULAR VOLUME 89.9 fL (81.0-99.0); MEAN PLATELET VOLUME 8.7 fl (7.4-10.4); MONOCYTES % 6.3 % (2.0-8.0); PLATELET 574 x1000/uL (130-400); RED BLOOD CELL COUNT 2.67 mill/uL (4.2-5.4)
[2017-07-24 12:00] VITALS: BP 129/88
[2017-07-24 16:00] VITALS: BP 117/78
[2017-07-24 20:00] VITALS: BP 134/89
[2017-07-24] MEDS: BUDESONIDE 0.5MG/2ML NEB HHN SCH (20:34)
[2017-07-24] MEDS: IRON SUCROSE COMPLEX 100 MG/5 ML ML IV SCH (23:50)
[2017-07-25] VITALS: BP_SYST 101; BP_SYST 111; BP_DIAS 57; BP_DIAS 74
[2017-07-25] MEDS: IPRATROPIUM/ALBUTEROL 0.5-3(2.5)MG/3ML NEB HHN SCH ×7 (01:03→23:50)
[2017-07-25 04:00] VITALS: BP 116/78
[2017-07-25] MEDS: HYDROCODONE/ACETAMINOPHEN 10/325MG TABLET PO PRN ×3 (04:25→18:44)
[2017-07-25] MEDS: GUAIFENESIN 200MG/10ML SUGAR FREE UDC PO PRN ×2 (04:31→18:42)
[2017-07-25] MEDS: PIPERACILLIN/TAZ 3.375G PREMIX 50 ML IV SCH ×2 (05:40→17:44)
[2017-07-25] MEDS: BENZONATATE 100MG CAPSULE PO SCH ×3 (05:40→21:16)
[2017-07-25 08:00] VITALS: BP 98/57
[2017-07-25] MEDS: FAMOTIDINE 20MG TABLET PO SCH ×2 (08:59→20:47)
[2017-07-25] MEDS: ACETAMINOPHEN 325MG TABLET PO PRN (09:00)
[2017-07-25] MEDS: NICOTINE 21MG PATCH TD SCH (09:02)
[2017-07-25] MEDS: BUDESONIDE 0.5MG/2ML NEB HHN SCH ×2 (09:10→19:45)
[2017-07-25 12:00] VITALS: BP 116/71
[2017-07-25 16:00] VITALS: BP 116/63
[2017-07-25] MEDS: AMPICILLIN SOD/SULBACTAM NA 3 G in SODIUM CHLORIDE 0.9% 100 ML IV SCH ×2 (18:42→23:06)
[2017-07-25 20:00] VITALS: BP 116/74
[2017-07-25] MEDS: DIPHENHYDRAMINE 50MG/ML VIAL IV PRN (20:46)
[2017-07-25] MEDS: IRON SUCROSE COMPLEX 100 MG/5 ML ML IV SCH (23:07)
[2017-07-26] VITALS: BP 111/74
[2017-07-26] MEDS: GUAIFENESIN 200MG/10ML SUGAR FREE UDC PO PRN ×2 (01:04→06:17)
[2017-07-26] MEDS: HYDROCODONE/ACETAMINOPHEN 10/325MG TABLET PO PRN ×2 (01:05→17:50)
[2017-07-26] MEDS: IPRATROPIUM/ALBUTEROL 0.5-3(2.5)MG/3ML NEB HHN SCH ×5 (03:49→21:34)
[2017-07-26 04:00] VITALS: BP 121/70
[2017-07-26] MEDS: BENZONATATE 100MG CAPSULE PO SCH ×3 (05:08→21:19)
[2017-07-26] MEDS: AMPICILLIN SOD/SULBACTAM NA 3 G in SODIUM CHLORIDE 0.9% 100 ML IV SCH ×2 (05:08→11:31)
[2017-07-26 08:00] VITALS: BP 116/74
[2017-07-26] MEDS: BUDESONIDE 0.5MG/2ML NEB HHN SCH ×2 (08:55→21:34)
[2017-07-26] MEDS: FAMOTIDINE 20MG TABLET PO SCH ×2 (09:16→21:19)
[2017-07-26] MEDS: NICOTINE 21MG PATCH TD SCH (09:16)
[2017-07-26] MEDS: ACETAMINOPHEN 325MG TABLET PO PRN ×2 (09:17→21:23)
[2017-07-26 12:00] VITALS: BP 106/65
[2017-07-26] MEDS: CEFTRIAXONE 2 G in DEXTROSE 5% WATER 50 ML IV SCH (14:01)
[2017-07-26 16:00] VITALS: BP 131/88
[2017-07-26 20:00] VITALS: BP 111/64
[2017-07-27] VITALS: BP 100/71
[2017-07-27] MEDS ORDERED: IRON SUCROSE COMPLEX 100 MG/5 ML ML IV SCH (01:45)
[2017-07-27] MEDS: IRON SUCROSE COMPLEX 100 MG/5 ML ML IV SCH (01:54)
[2017-07-27] MEDS: GUAIFENESIN 200MG/10ML SUGAR FREE UDC PO PRN ×3 (02:37→20:06)
[2017-07-27] MEDS: HYDROCODONE/ACETAMINOPHEN 10/325MG TABLET PO PRN ×3 (02:40→21:14)
[2017-07-27] MEDS: IPRATROPIUM/ALBUTEROL 0.5-3(2.5)MG/3ML NEB HHN SCH ×5 (03:02→20:19)
[2017-07-27 04:00] VITALS: BP 105/70
[2017-07-27] MEDS: BENZONATATE 100MG CAPSULE PO SCH ×3 (06:30→21:12)
[2017-07-27] MEDS: ACETAMINOPHEN 325MG TABLET PO PRN ×2 (06:36→16:40)
[2017-07-27 07:08] LABS: HEMATOCRIT. 23.3 % (36.0-48.0); HEMOGLOBIN. 7.5 g/dL (12.0-16.0); MEAN CORPUSCULAR HEMOGLOBIN 28.9 pg (28.0-32.0); MEAN CORPUSCULAR VOLUME 90.2 fL (81.0-99.0); MEAN PLATELET VOLUME 8.5 fl (7.4-10.4); PLATELET 691 x1000/uL (130-400); RED BLOOD CELL COUNT 2.58 mill/uL (4.2-5.4); RED CELL DISTRIBUTION WIDTH 16.1 % (11.6-14.6)
[2017-07-27 08:00] VITALS: BP 104/65
[2017-07-27] MEDS: BUDESONIDE 0.5MG/2ML NEB HHN SCH ×2 (08:14→20:19)
[2017-07-27] MEDS: DIPHENHYDRAMINE 50MG/ML VIAL IV PRN ×2 (08:34→20:03)
[2017-07-27] MEDS: FAMOTIDINE 20MG TABLET PO SCH ×2 (08:34→20:03)
[2017-07-27] MEDS: NICOTINE 21MG PATCH TD SCH (08:34)
[2017-07-27 09:50] LABS: PLATELET ESTIMATE MARKEDLY INCREASED
[2017-07-27 12:00] VITALS: BP 123/79
[2017-07-27] MEDS: CEFTRIAXONE 2 G in DEXTROSE 5% WATER 50 ML IV SCH (13:12)
[2017-07-27] MEDS: GUAIFENESIN/DM 600MG/30MG ER TAB 12HR PO PRN (13:12)
[2017-07-27 16:00] VITALS: BP 109/64
[2017-07-27 20:00] VITALS: BP 112/76
[2017-07-27] MEDS ORDERED: BUDESONIDE 0.5MG/2ML NEB ONE (20:25)
[2017-07-28] VITALS: BP 110/68
[2017-07-28] MEDS: IPRATROPIUM/ALBUTEROL 0.5-3(2.5)MG/3ML NEB HHN SCH ×4 (00:26→15:18)
[2017-07-28] MEDS: GUAIFENESIN 200MG/10ML SUGAR FREE UDC PO PRN ×3 (03:03→16:56)
[2017-07-28] MEDS: HYDROCODONE/ACETAMINOPHEN 10/325MG TABLET PO PRN ×3 (03:11→20:25)
[2017-07-28] MEDS: GUAIFENESIN/DM 600MG/30MG ER TAB 12HR PO PRN ×2 (03:27→20:24)
[2017-07-28 04:00] VITALS: BP 113/64
[2017-07-28] MEDS: ACETAMINOPHEN 325MG TABLET PO PRN ×3 (04:04→17:44)
[2017-07-28] MEDS: DIPHENHYDRAMINE 50MG/ML VIAL IV PRN ×2 (04:04→19:41)
[2017-07-28] MEDS: BENZONATATE 100MG CAPSULE PO SCH ×3 (06:30→21:30)
[2017-07-28 08:00] VITALS: BP 107/79
[2017-07-28] MEDS: FAMOTIDINE 20MG TABLET PO SCH ×2 (09:09→20:24)
[2017-07-28] MEDS: NICOTINE 21MG PATCH TD SCH (09:10)
[2017-07-28 12:00] VITALS: BP 107/75
[2017-07-28] MEDS: CEFTRIAXONE 2 G in DEXTROSE 5% WATER 50 ML IV SCH (13:17)
[2017-07-28 17:00] VITALS: BP 116/74
[2017-07-28 20:00] VITALS: BP 162/99
[2017-07-28] MEDS: ONDANSETRON HCL 4MG/2ML VIAL IV PRN (20:24)
[2017-07-29] VITALS (19 sets, daily range): BP systolic 99–133; BP diastolic 43–86
[2017-07-29] MEDS: GUAIFENESIN 200MG/10ML SUGAR FREE UDC PO PRN ×3 (00:02→21:41)
[2017-07-29] MEDS: ACETAMINOPHEN 325MG TABLET PO PRN ×4 (00:08→21:42)
[2017-07-29] MEDS: IPRATROPIUM/ALBUTEROL 0.5-3(2.5)MG/3ML NEB HHN SCH ×6 (00:36→20:34)
[2017-07-29] MEDS: BENZONATATE 100MG CAPSULE PO SCH ×3 (05:59→21:38)
[2017-07-29] MEDS ORDERED: IOHEXOL-350 100 ML BOTTLE ONE (08:27)
[2017-07-29] MEDS ORDERED: FENTANYL CITRATE/PF 50MCG/ML 2ML VIAL ONE (08:45)
[2017-07-29] MEDS ORDERED: LIDOCAINE HCL/PF 1% 10 MG/ML 5ML VIAL ONE (09:03)
[2017-07-29] MEDS ORDERED: SODIUM BICARBONATE 4% (2.4MEQ) 5ML VIAL IV ONE (09:12)
[2017-07-29] MEDS ORDERED: FENTANYL CITRATE/PF 50MCG/ML 2ML VIAL IV ONE (09:30)
[2017-07-29] MEDS: NICOTINE 21MG PATCH TD SCH (10:39)
[2017-07-29] MEDS: FAMOTIDINE 20MG TABLET PO SCH ×2 (10:40→20:18)
[2017-07-29] MEDS: CEFTRIAXONE 2 G in DEXTROSE 5% WATER 50 ML IV SCH (14:05)
[2017-07-29] MEDS: DIPHENHYDRAMINE 50MG/ML VIAL IV PRN ×2 (14:11→20:18)
[2017-07-29] MEDS: HYDROCODONE/ACETAMINOPHEN 10/325MG TABLET PO PRN (17:28)
[2017-07-29] MEDS: METRONIDAZOLE 500 MG PREMIX 100 ML IV SCH (17:32)
[2017-07-30] VITALS: BP 139/90
[2017-07-30] MEDS: IPRATROPIUM/ALBUTEROL 0.5-3(2.5)MG/3ML NEB HHN SCH ×6 (00:03→20:00)
[2017-07-30] MEDS: GUAIFENESIN/DM 600MG/30MG ER TAB 12HR PO PRN ×2 (02:15→19:36)
[2017-07-30] MEDS: DIPHENHYDRAMINE 50MG/ML VIAL IV PRN ×3 (02:15→18:55)
[2017-07-30] MEDS: HYDROCODONE/ACETAMINOPHEN 10/325MG TABLET PO PRN ×3 (02:15→21:06)
[2017-07-30] MEDS: METRONIDAZOLE 500 MG PREMIX 100 ML IV SCH ×3 (03:39→17:16)
[2017-07-30 04:00] VITALS: BP 108/72
[2017-07-30] MEDS: BENZONATATE 100MG CAPSULE PO SCH ×3 (06:00→21:05)
[2017-07-30 07:03] LABS: BASOPHILS % 1.1 % (0.0-2.0); EOSINOPHILS % 1.3 % (0.0-5.0); HEMATOCRIT. 24.7 % (36.0-48.0); HEMOGLOBIN. 7.9 g/dL (12.0-16.0); LYMPHOCYTES % 8.1 % (20.0-50.0); MEAN CORPUSCULAR HEMOGLOBIN 28.7 pg (28.0-32.0); MEAN CORPUSCULAR VOLUME 89.5 fL (81.0-99.0); MEAN PLATELET VOLUME 8.8 fl (7.4-10.4); MONOCYTES % 5.5 % (2.0-8.0); PLATELET 641 x1000/uL (130-400); RED BLOOD CELL COUNT 2.76 mill/uL (4.2-5.4); RED CELL DISTRIBUTION WIDTH 16.1 % (11.6-14.6)
[2017-07-30 07:29] LABS: CHLORIDE 101 mEq/L (98-107)
[2017-07-30 07:41] LABS: PHOSPHORUS 4.4 mg/dL (2.5-4.9)
[2017-07-30 07:44] LABS: TOTAL IRON BINDING CAPACITY 183 ug/dL (250-450)
[2017-07-30 08:00] VITALS: BP 113/74
[2017-07-30] MEDS: GUAIFENESIN 200MG/10ML SUGAR FREE UDC PO PRN (08:41)
[2017-07-30] MEDS: FAMOTIDINE 20MG TABLET PO SCH ×2 (08:41→21:05)
[2017-07-30] MEDS: NICOTINE 21MG PATCH TD SCH (08:42)
[2017-07-30] MEDS ORDERED: HEPARIN 100 UNITS/1 ML VIAL IVF ONE (10:30)
[2017-07-30] MEDS ORDERED: HEPARIN 100 UNITS/1 ML VIAL IVF NR (11:00)
[2017-07-30 12:00] VITALS: BP 114/85
[2017-07-30] MEDS: CEFTRIAXONE 2 G in DEXTROSE 5% WATER 50 ML IV SCH (14:02)
[2017-07-30] MEDS: ACETAMINOPHEN 325MG TABLET PO PRN (14:17)
[2017-07-30 17:00] VITALS: BP 120/80
[2017-07-30 20:00] VITALS: BP 137/94
[2017-07-31] VITALS: BP 135/95
[2017-07-31] MEDS: GUAIFENESIN 200MG/10ML SUGAR FREE UDC PO PRN ×4 (00:21→17:50)
[2017-07-31] MEDS: IPRATROPIUM/ALBUTEROL 0.5-3(2.5)MG/3ML NEB HHN SCH ×6 (00:34→20:55)
[2017-07-31] MEDS: DIPHENHYDRAMINE 50MG/ML VIAL IV PRN ×3 (00:38→22:44)
[2017-07-31] MEDS: METRONIDAZOLE 500 MG PREMIX 100 ML IV SCH ×3 (02:01→17:50)
[2017-07-31] MEDS: BENZONATATE 100MG CAPSULE PO SCH ×3 (05:46→20:39)
[2017-07-31 08:06] VITALS: BP 123/79
[2017-07-31] MEDS: FAMOTIDINE 20MG TABLET PO SCH (08:35)
[2017-07-31] MEDS: ACETAMINOPHEN 325MG TABLET PO PRN ×2 (08:35→20:40)
[2017-07-31] MEDS: NICOTINE 21MG PATCH TD SCH (08:35)
[2017-07-31] MEDS: IRON SUCROSE COMPLEX 100 MG/5 ML ML IV SCH (12:34)
[2017-07-31 12:47] VITALS: BP 105/69
[2017-07-31 13:17] LABS: BASOPHILS % 0.7 % (0.0-2.0); EOSINOPHILS % 1.7 % (0.0-5.0); HEMOGLOBIN. 8.1 g/dL (12.0-16.0); LYMPHOCYTES % 9.4 % (20.0-50.0); MEAN CORPUSCULAR VOLUME 89.2 fL (81.0-99.0); MEAN PLATELET VOLUME 8.9 fl (7.4-10.4); MONOCYTES % 7.2 % (2.0-8.0); PLATELET 608 x1000/uL (130-400)
[2017-07-31] MEDS: CEFTRIAXONE 2 G in DEXTROSE 5% WATER 50 ML IV SCH (14:59)
[2017-07-31] MEDS: HYDROCODONE/ACETAMINOPHEN 10/325MG TABLET PO PRN (15:12)
[2017-07-31 16:30] VITALS: BP 113/79
[2017-07-31] MEDS: METOCLOPRAMIDE HCL 10MG TABLET PO SCH (17:50)
[2017-07-31] MEDS: PANTOPRAZOLE 40MG DR TABLET PO SCH ×2 (17:50→20:40)
[2017-08-01] MEDS: GUAIFENESIN 200MG/10ML SUGAR FREE UDC PO PRN ×4 (00:20→20:07)
[2017-08-01] MEDS: METOCLOPRAMIDE HCL 10MG TABLET PO SCH ×4 (00:20→19:41)
[2017-08-01] MEDS: IPRATROPIUM/ALBUTEROL 0.5-3(2.5)MG/3ML NEB HHN SCH ×6 (00:28→20:17)
[2017-08-01] MEDS: METRONIDAZOLE 500 MG PREMIX 100 ML IV SCH ×3 (03:09→21:31)
[2017-08-01] MEDS: BENZONATATE 100MG CAPSULE PO SCH ×3 (06:21→21:31)
[2017-08-01] MEDS: DIPHENHYDRAMINE 50MG/ML VIAL IV PRN ×3 (06:21→20:07)
[2017-08-01] MEDS: PANTOPRAZOLE 40MG DR TABLET PO SCH ×2 (06:22→20:07)
[2017-08-01 07:25] LABS: BASOPHILS % 0.8 % (0.0-2.0); EOSINOPHILS % 1.4 % (0.0-5.0); HEMATOCRIT. 24.4 % (36.0-48.0); LYMPHOCYTES % 8.7 % (20.0-50.0); MEAN CORPUSCULAR VOLUME 88.4 fL (81.0-99.0); MEAN PLATELET VOLUME 8.9 fl (7.4-10.4); MONOCYTES % 7.6 % (2.0-8.0); NEUTROPHILS % 81.5 % (40.0-76.0); PLATELET 618 x1000/uL (130-400); RED BLOOD CELL COUNT 2.76 mill/uL (4.2-5.4); RED CELL DISTRIBUTION WIDTH 16.1 % (11.6-14.6)
[2017-08-01 07:51] LABS: CHLORIDE 101 mEq/L (98-107)
[2017-08-01 08:00] VITALS: BP 111/71
[2017-08-01] MEDS: IRON SUCROSE COMPLEX 100 MG/5 ML ML IV SCH (10:02)
[2017-08-01 10:56] LABS: PHOSPHORUS 3.7 mg/dL (2.5-4.9)
[2017-08-01] MEDS ORDERED: KCL 20MEQ/100ML PREMIX 100 ML IV SCH (11:00)
[2017-08-01] MEDS: NICOTINE 21MG PATCH TD SCH (11:19)
[2017-08-01 12:00] VITALS: BP 116/83
[2017-08-01 12:55] LABS: UCG SCREEN NEGATIVE
[2017-08-01] MEDS ORDERED: MIDAZOLAM HCL 5 MG/5 ML VIAL ONE (14:57)
[2017-08-01] MEDS ORDERED: SIMETHICONE 40 MG/0.6 ML 30ML ONE (14:57)
[2017-08-01] MEDS ORDERED: FENTANYL CITRATE/PF 50MCG/ML 2ML VIAL ONE (14:57)
[2017-08-01] MEDS ORDERED: MIDAZOLAM HCL 5 MG/5 ML VIAL IV PRN (15:00)
[2017-08-01] MEDS ORDERED: FENTANYL CITRATE/PF 50MCG/ML 2ML VIAL IV PRN (15:01)
[2017-08-01] MEDS ORDERED: SODIUM CHLORIDE 0.9% 10ML VIAL ONE (15:33)
[2017-08-01 20:00] VITALS: BP 148/91
[2017-08-01] MEDS ORDERED: HEPARIN 100 UNITS/1 ML VIAL IVF SCH (20:00)
[2017-08-01] MEDS: CEFTRIAXONE 2 G in DEXTROSE 5% WATER 50 ML IV SCH (20:26)
[2017-08-01] MEDS: HYDROCODONE/ACETAMINOPHEN 10/325MG TABLET PO PRN (21:57)
[2017-08-02] VITALS: BP 110/68
[2017-08-02] MEDS: METOCLOPRAMIDE HCL 10MG TABLET PO SCH ×5 (00:16→23:59)
[2017-08-02] MEDS: DIPHENHYDRAMINE 50MG/ML VIAL IV PRN ×5 (00:17→23:59)
[2017-08-02] MEDS: GUAIFENESIN 200MG/10ML SUGAR FREE UDC PO PRN ×4 (00:20→20:47)
[2017-08-02] MEDS ORDERED: MAGNESIUM 2 G PREMIX 50 ML IV SCH (02:00)
[2017-08-02] MEDS: GUAIFENESIN/DM 600MG/30MG ER TAB 12HR PO PRN ×2 (02:21→13:30)
[2017-08-02] MEDS: IPRATROPIUM/ALBUTEROL 0.5-3(2.5)MG/3ML NEB HHN SCH ×4 (02:53→22:05)
[2017-08-02] MEDS: ACETAMINOPHEN 325MG TABLET PO PRN ×3 (03:55→23:59)
[2017-08-02 04:00] VITALS: BP 120/73
[2017-08-02] MEDS: METRONIDAZOLE 500 MG PREMIX 100 ML IV SCH ×2 (05:03→13:30)
[2017-08-02] MEDS: BENZONATATE 100MG CAPSULE PO SCH ×3 (05:46→22:56)
[2017-08-02] MEDS: PANTOPRAZOLE 40MG DR TABLET PO SCH ×2 (05:46→22:56)
[2017-08-02 07:39] LABS: HEMOGLOBIN 8.4 g/dL (12.0-16.0)
[2017-08-02 08:00] VITALS: BP 110/59
[2017-08-02] MEDS: NICOTINE 21MG PATCH TD SCH (09:02)
[2017-08-02] MEDS: IRON SUCROSE COMPLEX 100 MG/5 ML ML IV SCH (09:02)
[2017-08-02 12:00] VITALS: BP_SYST 125; BP_SYST 147; BP_DIAS 67; BP_DIAS 93
[2017-08-02] MEDS: HYDROCODONE/ACETAMINOPHEN 10/325MG TABLET PO PRN (12:15)
[2017-08-02 16:00] VITALS: BP 125/96
[2017-08-02 20:00] VITALS: BP 153/78
[2017-08-02] MEDS: ONDANSETRON HCL 4MG/2ML VIAL IV PRN (21:34)
[2017-08-02] MEDS: CEFTRIAXONE 2 G in DEXTROSE 5% WATER 50 ML IV SCH (22:56)
[2017-08-03] VITALS: BP 116/77
[2017-08-03] MEDS: IPRATROPIUM/ALBUTEROL 0.5-3(2.5)MG/3ML NEB HHN SCH ×4 (01:48→20:44)
[2017-08-03 04:00] VITALS: BP 133/97
[2017-08-03] MEDS: DIPHENHYDRAMINE 50MG/ML VIAL IV PRN ×4 (04:30→21:12)
[2017-08-03] MEDS: GUAIFENESIN/DM 600MG/30MG ER TAB 12HR PO PRN ×2 (04:30→17:16)
[2017-08-03] MEDS: METOCLOPRAMIDE HCL 10MG TABLET PO SCH ×4 (06:51→23:22)
[2017-08-03] MEDS: PANTOPRAZOLE 40MG DR TABLET PO SCH ×2 (06:52→21:12)
[2017-08-03] MEDS: BENZONATATE 100MG CAPSULE PO SCH ×3 (06:52→23:22)
[2017-08-03] MEDS: HYDROCODONE/ACETAMINOPHEN 10/325MG TABLET PO PRN ×2 (06:53→13:12)
[2017-08-03] MEDS: METRONIDAZOLE 500 MG PREMIX 100 ML IV SCH ×4 (06:53→21:11)
[2017-08-03 08:00] VITALS: BP 112/73
[2017-08-03] MEDS: GUAIFENESIN 200MG/10ML SUGAR FREE UDC PO PRN ×2 (09:08→18:14)
[2017-08-03] MEDS: NICOTINE 21MG PATCH TD SCH (09:09)
[2017-08-03 11:44] LABS: BASOPHILS % 0.5 % (0.0-2.0); EOSINOPHILS % 1.9 % (0.0-5.0); HEMATOCRIT. 25.2 % (36.0-48.0); HEMOGLOBIN. 8.1 g/dL (12.0-16.0); LYMPHOCYTES % 8.8 % (20.0-50.0); MEAN CORPUSCULAR HEMOGLOBIN 28.4 pg (28.0-32.0); MEAN CORPUSCULAR VOLUME 88.2 fL (81.0-99.0); MEAN PLATELET VOLUME 8.5 fl (7.4-10.4); MONOCYTES % 4.9 % (2.0-8.0); NEUTROPHILS % 83.9 % (40.0-76.0); PLATELET 593 x1000/uL (130-400); RED BLOOD CELL COUNT 2.85 mill/uL (4.2-5.4); RED CELL DISTRIBUTION WIDTH 16.5 % (11.6-14.6)
[2017-08-03 11:58] LABS: CHLORIDE 102 mEq/L (98-107)
[2017-08-03 12:00] VITALS: BP 112/72
[2017-08-03 12:04] LABS: PHOSPHORUS 3.3 mg/dL (2.5-4.9)
[2017-08-03 16:00] VITALS: BP 127/87
[2017-08-03 20:21] VITALS: BP 121/76
[2017-08-03] MEDS: ACETAMINOPHEN 325MG TABLET PO PRN (21:11)
[2017-08-04 00:21] VITALS: BP 116/76
[2017-08-04] MEDS: GUAIFENESIN 200MG/10ML SUGAR FREE UDC PO PRN ×2 (01:38→17:59)
[2017-08-04] MEDS: IPRATROPIUM/ALBUTEROL 0.5-3(2.5)MG/3ML NEB HHN SCH ×4 (02:38→21:54)
[2017-08-04 04:00] VITALS: BP 109/67
[2017-08-04] MEDS: DIPHENHYDRAMINE 50MG/ML VIAL IV PRN ×5 (04:27→21:30)
[2017-08-04] MEDS: IPRATROPIUM/ALBUTEROL 0.5-3(2.5)MG/3ML NEB INH PRN (05:14)
[2017-08-04] MEDS: BENZONATATE 100MG CAPSULE PO SCH ×3 (05:49→23:04)
[2017-08-04] MEDS: METOCLOPRAMIDE HCL 10MG TABLET PO SCH ×4 (05:49→23:05)
[2017-08-04] MEDS: METRONIDAZOLE 500 MG PREMIX 100 ML IV SCH ×3 (05:49→23:05)
[2017-08-04] MEDS: PANTOPRAZOLE 40MG DR TABLET PO SCH ×2 (05:49→20:49)
[2017-08-04 08:00] VITALS: BP 119/79
[2017-08-04] MEDS: NICOTINE 21MG PATCH TD SCH (08:29)
[2017-08-04] MEDS: ACETAMINOPHEN 325MG TABLET PO PRN ×2 (08:29→18:46)
[2017-08-04] MEDS: GUAIFENESIN/DM 600MG/30MG ER TAB 12HR PO PRN ×2 (08:39→20:45)
[2017-08-04] MEDS: HYDROCODONE/ACETAMINOPHEN 10/325MG TABLET PO PRN (11:55)
[2017-08-04 12:00] VITALS: BP 112/68
[2017-08-04 16:00] VITALS: BP 113/75
[2017-08-04 20:00] VITALS: BP 113/82
[2017-08-04] MEDS ORDERED: CEFTRIAXONE 2 G in DEXTROSE 5% WATER 50 ML IV SCH (20:00)
[2017-08-05] VITALS: BP 122/84
[2017-08-05] MEDS: ACETAMINOPHEN 325MG TABLET PO PRN (00:02)
[2017-08-05] MEDS: GUAIFENESIN 200MG/10ML SUGAR FREE UDC PO PRN ×2 (03:29→11:36)
[2017-08-05] MEDS: DIPHENHYDRAMINE 50MG/ML VIAL IV PRN ×2 (03:30→11:36)
[2017-08-05 04:00] VITALS: BP 108/69
[2017-08-05] MEDS: IPRATROPIUM/ALBUTEROL 0.5-3(2.5)MG/3ML NEB INH PRN (04:36)
[2017-08-05] MEDS: METRONIDAZOLE 500 MG PREMIX 100 ML IV SCH ×2 (05:59→15:01)
[2017-08-05] MEDS: METOCLOPRAMIDE HCL 10MG TABLET PO SCH ×2 (05:59→12:34)
[2017-08-05] MEDS: BENZONATATE 100MG CAPSULE PO SCH ×2 (05:59→15:01)
[2017-08-05] MEDS: PANTOPRAZOLE 40MG DR TABLET PO SCH (06:00)
[2017-08-05 08:00] VITALS: BP 121/73
[2017-08-05] MEDS: NICOTINE 21MG PATCH TD SCH (08:24)
[2017-08-05] MEDS: IPRATROPIUM/ALBUTEROL 0.5-3(2.5)MG/3ML NEB HHN SCH ×2 (09:05→15:21)
[2017-08-05 12:00] VITALS: BP 130/89
[2017-08-05] MEDS ORDERED: MAGNESIUM 2 G PREMIX 50 ML IV NR (12:00)
[2017-08-05] MEDS: HYDROCODONE/ACETAMINOPHEN 10/325MG TABLET PO PRN (13:17)
[2017-08-05 15:39] VITALS: BP 130/89
[2017-08-05 16:00] VITALS: BP 111/79
== END 2017-08-05 16:50 | DRG 710 ==
LOC: ER 10:23 → 6EST 13:20 → EDBEDREQ 13:22 → EDBEDREQSVC 13:22 → EDBEDREQTM 13:22 → ENRESERV 14:50 → CANBEDREQ 16:03 → 5EST 07-19 19:27 → 5WST 07-23 23:06
PROVIDERS: ADMIT Internal Medicine; ATTEND Internal Medicine
PROC: 02HV33Z Insertion of Infusion Device into Superior Vena Cava, Percutaneous Approach (ICD-10-PCS; 2017-07-15)
PROC: B5181ZA Fluoroscopy of Superior Vena Cava using Low Osmolar Contrast, Guidance (ICD-10-PCS; 2017-07-15)
PROC: B548ZZA Ultrasonography of Superior Vena Cava, Guidance (ICD-10-PCS; 2017-07-15)
PROC: 0B9K3ZZ Drainage of Right Lung, Percutaneous Approach (ICD-10-PCS; 2017-07-29)
PROC: 0DB68ZX Excision of Stomach, Via Natural or Artificial Opening Endoscopic, Diagnostic (ICD-10-PCS; principal; 2017-08-01 15:00)
DX: A41.59 Other Gram-negative sepsis (principal); J96.00 Acute respiratory failure, unspecified whether with hypoxia or hypercapnia; E43 Unspecified severe protein-calorie malnutrition; J85.1 Abscess of lung with pneumonia; D69.6 Thrombocytopenia, unspecified; K29.71 Gastritis, unspecified, with bleeding; K44.0 Diaphragmatic hernia with obstruction, without gangrene; K46.0 Unspecified abdominal hernia with obstruction, without gangrene; J45.901 Unspecified asthma with (acute) exacerbation; E83.39 Other disorders of phosphorus metabolism; E87.6 Hypokalemia; B96.1 Klebsiella pneumoniae [K. pneumoniae] as the cause of diseases classified elsewhere; F17.210 Nicotine dependence, cigarettes, uncomplicated; M79.7 Fibromyalgia; R79.89 Other specified abnormal findings of blood chemistry; Z82.49 Family history of ischemic heart disease and other diseases of the circulatory system; Z59.0 Homelessness; Z83.3 Family history of diabetes mellitus; Z90.49 Acquired absence of other specified parts of digestive tract; Z90.710 Acquired absence of both cervix and uterus; Z79.899 Other long term (current) drug therapy; Z68.24 Body mass index [BMI] 24.0-24.9, adult
CPT/HCPCS: 31500; 32405; 36415; 36569; 36600; 71045; 71046; 71250; 71275; 74018; 74176; 76604; 76705; 76937; 77001; 77012; 78806; 80048; 80053; 80170; 80202; 80305; 81003; 81025; 82270; 82375; 82728; 82805; 83036; 83540; 83550; 83605; 83690; 83735; 84100; 84145; 85014; 85018; 85025; 85610; 85730; 86677; 87015; 87040; 87045; 87070; 87075; 87077; 87086; 87186; 87205; 87427; 87449; 87804; 89055; 93005; 93306; 93970; 94640; 94664; 94667; 97162; 99285; A4216; A9547; C1725; C1893; C9113; G0482; J0295; J0456; J0696; J1200; J1580; J1642; J1885; J1956; J2250; J2270; J2405; J2543; J2930; J3010; J3370; J3475; J3480; J3490; J7030; J7040; J7050; J7060; J7608; J7620; J7626; J8597; Q9967

== ENCOUNTER 2017-09-22 09:03 | Inpatient (IN) | payer MEDICAID ==
[~2017-09-22] VITALS: Ht 160 cm; Wt 57.8 kg
[2017-09-22] MEDS ORDERED: ONDANSETRON HCL 4MG/2ML VIAL IV STA ×2 (09:29→12:14)
[2017-09-22] MEDS ORDERED: SODIUM CHLORIDE 0.9% 1,000 ML IV ONE (09:29)
[2017-09-22 09:47] LABS: HEMATOCRIT. 39.1 % (36.0-48.0); HEMOGLOBIN. 12.8 g/dL (12.0-16.0); MEAN CORPUSCULAR HEMOGLOBIN 28.9 pg (28.0-32.0); MEAN CORPUSCULAR VOLUME 88.1 fL (81.0-99.0); MEAN PLATELET VOLUME 8.9 fl (7.4-10.4); PLATELET 150 x1000/uL (130-400); RED BLOOD CELL COUNT 4.44 mill/uL (4.2-5.4); RED CELL DISTRIBUTION WIDTH 16.5 % (11.6-14.6)
[2017-09-22 09:53] LABS: CHLORIDE 106 mEq/L (98-107)
[2017-09-22 09:55] LABS: HCG SCREEN NEGATIVE
[2017-09-22 09:56] LABS: INR 1.5; PROTHROMBIN TIME 15.5 sec (9.4-11.6)
[2017-09-22 10:08] LABS: PLATELET ESTIMATE NORMAL
[2017-09-22 10:09] LABS: CLARITY URINE CLEAR (CLEAR); COLOR URINE YELLOW (YELLOW); KETONES URINE NEGATIVE (NEGATIVE); LEUKOCYTE ESTERASE URINE 2+ (NEGATIVE); NITRITE URINE NEGATIVE (NEGATIVE); OCCULT BLOOD URINE NEGATIVE (NEGATIVE); PROTEIN URINE NEGATIVE (NEGATIVE); SPECIFIC GRAVITY URINE 1.013 (1.005-1.030); UROBILINOGEN URINE 0.2 E.U./dL (0.2-1.0)
[2017-09-22 10:14] LABS: ETHANOL BLOOD 367 mg/dL
[2017-09-22 10:22] LABS: *AMPHETAMINES SCREEN URINE NEGATIVE (NEGATIVE); *BARBITURATES SCREEN URINE NEGATIVE (NEGATIVE); CANNABINOID URINE SCREEN NEGATIVE (NEGATIVE); OPIATES URINE SCREEN NEGATIVE (NEGATIVE)
[2017-09-22 10:23] LABS: *COCAINE SCREEN URINE NEGATIVE (NEGATIVE); METHADONE URINE SCREEN NEGATIVE (NEGATIVE)
[2017-09-22 10:25] LABS: *BENZODIAZEPINES SCREEN URINE PRESUMTIVE POSITIVE (NEGATIVE); PHENCYCLIDINE URINE SCREEN PRESUMTIVE POSITIVE (NEGATIVE)
[2017-09-22] MEDS ORDERED: SODIUM CHLORIDE 0.9% 1000ML BAG (SEPSIS BOLUS) IV ONE (11:15)
[2017-09-22] MEDS ORDERED: LEVOFLOXACIN 750MG PREMIX 150 ML IV ONE (11:15)
[2017-09-22 11:29] LABS: D-DIMER 1.63 mg/L FEU (<0.50); PARTIAL THROMBOPLASTIN TIME 34.5 sec (23.4-31.0)
[2017-09-22] MEDS ORDERED: MORPHINE SULFATE 4 MG/ML CPJ (NOT FOR IM USE) IV STA (12:14)
[2017-09-22] MEDS ORDERED: ASPIRIN 325MG EC TABLET PO ONE (12:15)
[2017-09-22] MEDS ORDERED: METRONIDAZOLE 500MG TABLET PO ONE (12:30)
[2017-09-22] MEDS ORDERED: FOLIC ACID 1 MG, THIAMINE HCL 100 MG, MVI, ADULT NO.1 10 ML in DEXTROSE 5% WATER 1,000 ML IV ONE ×4 (13:00)
[2017-09-22] MEDS ORDERED: ONDANSETRON HCL 4MG/2ML VIAL IV PRN (13:00)
[2017-09-22] MEDS ORDERED: IPRATROPIUM/ALBUTEROL 0.5-3(2.5)MG/3ML NEB HHN PRN (13:00)
[2017-09-22] MEDS ORDERED: IOHEXOL-350 100 ML BOTTLE ONE (15:05)
[2017-09-22 16:00] VITALS: BP 118/84
[2017-09-22] MEDS ORDERED: CLONIDINE 0.1MG TABLET PO PRN (16:15)
[2017-09-22 17:45] VITALS: BP 118/84
[2017-09-22] MEDS: METHYLPREDNISOLONE SOD SUCC 40 MG/ML VIAL IV SCH (19:04)
[2017-09-22 20:00] VITALS: BP 115/95
[2017-09-22] MEDS ORDERED: FOLIC ACID 1 MG, THIAMINE HCL 100 MG, MVI, ADULT NO.1 10 ML in DEXTROSE 5% WATER 1,000 ML IV SCH ×4 (20:00)
[2017-09-22] MEDS: MORPHINE SULFATE 4 MG/ML CPJ (NOT FOR IM USE) IV PRN (20:20)
[2017-09-22] MEDS: IPRATROPIUM/ALBUTEROL 0.5-3(2.5)MG/3ML NEB HHN SCH (21:37)
[2017-09-22] MEDS: BUDESONIDE 0.5MG/2ML NEB HHN SCH (21:37)
[2017-09-22] MEDS: CHLORDIAZEPOXIDE 25MG CAPSULE PO SCH (21:50)
[2017-09-22] MEDS: METRONIDAZOLE 500MG TABLET PO SCH (21:50)
[2017-09-22] MEDS: NICOTINE 14MG PATCH TD SCH (21:50)
[2017-09-23] VITALS: BP 97/59
[2017-09-23] MEDS: MORPHINE SULFATE 4 MG/ML CPJ (NOT FOR IM USE) IV PRN ×6 (00:24→22:52)
[2017-09-23] MEDS: IPRATROPIUM/ALBUTEROL 0.5-3(2.5)MG/3ML NEB HHN SCH ×6 (01:07→20:53)
[2017-09-23] MEDS: METHYLPREDNISOLONE SOD SUCC 40 MG/ML VIAL IV SCH ×2 (02:34→10:09)
[2017-09-23 04:00] VITALS: BP 104/72
[2017-09-23] MEDS: CHLORDIAZEPOXIDE 25MG CAPSULE PO SCH ×3 (06:26→21:06)
[2017-09-23 07:17] LABS: HEMATOCRIT. 35.3 % (36.0-48.0); HEMOGLOBIN. 11.4 g/dL (12.0-16.0); MEAN CORPUSCULAR HEMOGLOBIN 28.8 pg (28.0-32.0); MEAN CORPUSCULAR VOLUME 89.1 fL (81.0-99.0); MEAN PLATELET VOLUME 9.5 fl (7.4-10.4); PLATELET 102 x1000/uL (130-400); RED BLOOD CELL COUNT 3.96 mill/uL (4.2-5.4); RED CELL DISTRIBUTION WIDTH 15.7 % (11.6-14.6)
[2017-09-23 07:24] LABS: CHLORIDE 99 mEq/L (98-107)
[2017-09-23] MEDS: BUDESONIDE 0.5MG/2ML NEB HHN SCH ×2 (07:29→20:52)
[2017-09-23 07:58] VITALS: BP 113/72
[2017-09-23] MEDS: NICOTINE 14MG PATCH TD SCH (08:58)
[2017-09-23] MEDS: METRONIDAZOLE 500MG TABLET PO SCH ×2 (08:58→21:04)
[2017-09-23 09:45] LABS: PLATELET ESTIMATE DECREASED
[2017-09-23] MEDS: LEVOFLOXACIN 250MG TABLET PO SCH (10:09)
[2017-09-23 12:00] VITALS: BP 127/89
[2017-09-23 16:33] VITALS: BP 113/80
[2017-09-23] MEDS: PREDNISONE 20MG TABLET PO SCH (17:01)
[2017-09-23 20:00] VITALS: BP 122/81
[2017-09-24] VITALS: BP 107/72
[2017-09-24] MEDS: IPRATROPIUM/ALBUTEROL 0.5-3(2.5)MG/3ML NEB HHN SCH ×3 (00:28→08:56)
[2017-09-24 03:08] VITALS: BP 110/73
[2017-09-24] MEDS: MORPHINE SULFATE 4 MG/ML CPJ (NOT FOR IM USE) IV PRN ×2 (03:09→10:02)
[2017-09-24 05:29] LABS: BASOPHILS % 0.2 % (0.0-2.0); HEMATOCRIT. 31.8 % (36.0-48.0); HEMOGLOBIN. 10.5 g/dL (12.0-16.0); LYMPHOCYTES % 10.1 % (20.0-50.0); MEAN CORPUSCULAR HEMOGLOBIN 29.1 pg (28.0-32.0); MEAN CORPUSCULAR VOLUME 88.1 fL (81.0-99.0); MONOCYTES % 4.5 % (2.0-8.0); NEUTROPHILS % 85.2 % (40.0-76.0); RED BLOOD CELL COUNT 3.61 mill/uL (4.2-5.4); RED CELL DISTRIBUTION WIDTH 15.7 % (11.6-14.6)
[2017-09-24] MEDS: CHLORDIAZEPOXIDE 25MG CAPSULE PO SCH (05:46)
[2017-09-24 08:00] VITALS: BP 110/83
[2017-09-24] MEDS: BUDESONIDE 0.5MG/2ML NEB HHN SCH (08:56)
[2017-09-24 09:14] LABS: CHLORIDE 102 mEq/L (98-107)
[2017-09-24] MEDS: PREDNISONE 20MG TABLET PO SCH (09:18)
[2017-09-24] MEDS: METRONIDAZOLE 500MG TABLET PO SCH (09:18)
[2017-09-24] MEDS: NICOTINE 14MG PATCH TD SCH (09:18)
[2017-09-24 10:49] LABS: PLATELET 71 x1000/uL (130-400)
[2017-09-24] MEDS: LEVOFLOXACIN 250MG TABLET PO SCH (10:56)
[2017-09-24 11:40] VITALS: BP 125/97
[2017-09-24 12:00] VITALS: BP 125/97
== END 2017-09-24 12:20 | disposition home or self-care (01) | DRG 282 ==
LOC: ER 09:03 → 5WST 12:38 → ENRESERV 13:25
PROVIDERS: ADMIT Internal Medicine; ATTEND Internal Medicine
DX: K85.90 Acute pancreatitis without necrosis or infection, unspecified (principal); J96.00 Acute respiratory failure, unspecified whether with hypoxia or hypercapnia; J18.9 Pneumonia, unspecified organism; J90 Pleural effusion, not elsewhere classified; J44.0 Chronic obstructive pulmonary disease with (acute) lower respiratory infection; A59.9 Trichomoniasis, unspecified; F13.10 Sedative, hypnotic or anxiolytic abuse, uncomplicated; I10 Essential (primary) hypertension; F10.229 Alcohol dependence with intoxication, unspecified; E44.1 Mild protein-calorie malnutrition; J98.11 Atelectasis; D72.819 Decreased white blood cell count, unspecified; T51.0X1A Toxic effect of ethanol, accidental (unintentional), initial encounter; F17.210 Nicotine dependence, cigarettes, uncomplicated; Y90.8 Blood alcohol level of 240 mg/100 ml or more; F55.8 Abuse of other non-psychoactive substances; F17.200 Nicotine dependence, unspecified, uncomplicated
CPT/HCPCS: 36415; 71045; 71275; 74176; 80048; 80053; 80305; 81003; 81025; 83605; 83690; 83880; 84145; 84484; 84703; 85025; 85379; 85610; 85730; 87040; 93005; 94640; 96361; 96365; 96366; 96375; 96376; 99285; G0482; J1956; J2270; J2405; J2920; J3411; J3490; J7030; J7070; J7512; J7620; J7626; Q9967

== ENCOUNTER 2017-11-16 13:49 | Emergency (ER) | payer MEDICAID ==
[~2017-11-16] VITALS: Ht 162.6 cm; Wt 65.0 kg
[2017-11-16 15:56] LABS: HEMATOCRIT. 34.5 % (36.0-48.0); HEMOGLOBIN. 11.3 g/dL (12.0-16.0); MEAN CORPUSCULAR HEMOGLOBIN 30.4 pg (28.0-32.0); MEAN CORPUSCULAR VOLUME 92.4 fL (81.0-99.0); MEAN PLATELET VOLUME 9.8 fl (7.4-10.4); PLATELET 114 x1000/uL (130-400); RED BLOOD CELL COUNT 3.74 mill/uL (4.2-5.4)
[2017-11-16 15:58] LABS: CLARITY URINE CLEAR (CLEAR); COLOR URINE YELLOW (YELLOW); KETONES URINE NEGATIVE (NEGATIVE); LEUKOCYTE ESTERASE URINE NEGATIVE (NEGATIVE); NITRITE URINE NEGATIVE (NEGATIVE); OCCULT BLOOD URINE NEGATIVE (NEGATIVE); PROTEIN URINE NEGATIVE (NEGATIVE); SPECIFIC GRAVITY URINE 1.003 (1.005-1.030); UROBILINOGEN URINE 0.2 E.U./dL (0.2-1.0)
[2017-11-16 15:59] LABS: CHLORIDE 111 mEq/L (98-107)
[2017-11-16 16:08] LABS: *AMPHETAMINES SCREEN URINE NEGATIVE (NEGATIVE); *BARBITURATES SCREEN URINE NEGATIVE (NEGATIVE); *BENZODIAZEPINES SCREEN URINE NEGATIVE (NEGATIVE); *COCAINE SCREEN URINE NEGATIVE (NEGATIVE)
[2017-11-16 16:09] LABS: CANNABINOID URINE SCREEN NEGATIVE (NEGATIVE); METHADONE URINE SCREEN NEGATIVE (NEGATIVE); OPIATES URINE SCREEN NEGATIVE (NEGATIVE); PHENCYCLIDINE URINE SCREEN PRESUMTIVE POSITIVE (NEGATIVE)
[2017-11-16 16:14] LABS: ETHANOL BLOOD 380 mg/dL
[2017-11-16 17:18] LABS: PLATELET ESTIMATE DECREASED
[2017-11-16 18:30] VITALS: BP 110/76
== END 2017-11-16 18:55 | disposition home or self-care (01) ==
LOC: ER 14:03
DX: F10.229 Alcohol dependence with intoxication, unspecified (principal); I10 Essential (primary) hypertension; J45.909 Unspecified asthma, uncomplicated; F41.9 Anxiety disorder, unspecified; G40.909 Epilepsy, unspecified, not intractable, without status epilepticus; F16.10 Hallucinogen abuse, uncomplicated; Z79.899 Other long term (current) drug therapy; Y90.8 Blood alcohol level of 240 mg/100 ml or more
CPT/HCPCS: 36415; 80053; 80305; 81003; 82962; 85025; 99284; G0482; 99283

== ENCOUNTER 2017-12-28 17:59 | Emergency (ER) | payer MEDICAID ==
[~2017-12-28] VITALS: Ht 165.1 cm; Wt 70.0 kg
[2017-12-28] MEDS ORDERED: SODIUM CHLORIDE 0.9% 1,000 ML IV ONE (18:22)
[2017-12-28] MEDS ORDERED: IBUPROFEN 600MG TABLET PO STA (18:22)
[2017-12-28 19:13] LABS: BASOPHILS % 0.9 % (0.0-2.0); EOSINOPHILS % 0.8 % (0.0-5.0); HEMATOCRIT. 44.8 % (36.0-48.0); HEMOGLOBIN. 14.9 g/dL (12.0-16.0); LYMPHOCYTES % 52.2 % (20.0-50.0); MEAN CORPUSCULAR VOLUME 93.2 fL (81.0-99.0); MEAN PLATELET VOLUME 10.3 fl (7.4-10.4); MONOCYTES % 4.8 % (2.0-8.0); NEUTROPHILS % 41.3 % (40.0-76.0); PLATELET 103 x1000/uL (130-400); RED BLOOD CELL COUNT 4.81 mill/uL (4.2-5.4); RED CELL DISTRIBUTION WIDTH 13.7 % (11.6-14.6)
[2017-12-28 19:17] LABS: CHLORIDE 102 mEq/L (98-107)
[2017-12-28 19:22] LABS: ETHANOL BLOOD 277 mg/dL
[2017-12-28 19:23] LABS: CLARITY URINE CLEAR (CLEAR); COLOR URINE YELLOW (YELLOW); KETONES URINE TRACE (NEGATIVE); LEUKOCYTE ESTERASE URINE NEGATIVE (NEGATIVE); NITRITE URINE NEGATIVE (NEGATIVE); OCCULT BLOOD URINE NEGATIVE (NEGATIVE); PH URINE 5.5 (4.5-8.0); PROTEIN URINE 1+ (NEGATIVE); SPECIFIC GRAVITY URINE 1.019 (1.005-1.030)
[2017-12-28 19:28] LABS: HCG SCREEN NEGATIVE
[2017-12-28 19:34] LABS: *BARBITURATES SCREEN URINE NEGATIVE (NEGATIVE); *BENZODIAZEPINES SCREEN URINE NEGATIVE (NEGATIVE); *COCAINE SCREEN URINE NEGATIVE (NEGATIVE)
[2017-12-28 19:35] LABS: *AMPHETAMINES SCREEN URINE NEGATIVE (NEGATIVE); CANNABINOID URINE SCREEN NEGATIVE (NEGATIVE); METHADONE URINE SCREEN NEGATIVE (NEGATIVE); OPIATES URINE SCREEN NEGATIVE (NEGATIVE)
[2017-12-28 19:50] LABS: PHENCYCLIDINE URINE SCREEN PRESUMTIVE POSITIVE (NEGATIVE)
[2017-12-29 03:56] VITALS: BP 128/90
== END 2017-12-29 04:01 | disposition home or self-care (01) ==
LOC: ER 18:16
DX: T51.0X1A Toxic effect of ethanol, accidental (unintentional), initial encounter (principal); T40.991A Poisoning by other psychodysleptics [hallucinogens], accidental (unintentional), initial encounter; F10.20 Alcohol dependence, uncomplicated; I10 Essential (primary) hypertension; R56.9 Unspecified convulsions; F41.9 Anxiety disorder, unspecified; J45.909 Unspecified asthma, uncomplicated; J18.9 Pneumonia, unspecified organism; Y90.8 Blood alcohol level of 240 mg/100 ml or more; Y92.89 Other specified places as the place of occurrence of the external cause
CPT/HCPCS: 36415; 70450; 71045; 80053; 80305; 81003; 81025; 83605; 84703; 85025; 87040; 93005; 96360; 99285; G0482; J7030